=== PATIENT | male | born 1965 | race Caucasian/White ===

== ENCOUNTER 2025-03-25 17:50 | Inpatient (IN) | payer BC ==
[~2025-03-25] VITALS: Ht 178 cm; Wt 84.1 kg
[2025-03-25 18:27] VITALS: BP 151/100
[2025-03-25] MEDS ORDERED: diazePAM 10 MG/2 ML SYR IV ONE (18:35)
[2025-03-25] MEDS ORDERED: SODIUM CHLORIDE 0.9% 1,000 ML IV ONE (18:35)
[2025-03-25 18:50] LABS: BASO # 0.1 10*3/uL (0.0-0.1); BASO % 2.3 % (0.0-1.0); EOS # 0.0 10*3/uL (0.0-0.4); EOS % 0.4 % (1.0-4.0); MEAN CELL VOLUME 97.8 fl (80.0-94.0); MEAN CORPUSCULAR HGB 32.6 pg (27.0-31.0); MEAN PLATELET VOLUME 7.9 fl (9.6-12.3); MONO # 0.4 10*3/uL (0.1-1.0); MONO % 13.6 % (3.0-9.0); NEUT # 1.0 10*3/uL (2.3-7.9); NEUT % 40.5 % (47.0-73.0); NUCLEATED RED BLOOD CELL 0.0 % (0.0-0.0); NUCLEATED RED BLOOD CELL 0.0 10*3/uL (0.0-0.0); PLATELET COUNT AUTOMATED 225 10*3/uL (130-400); RED CELL DISTRI WIDTH 16.2 % (0-14.5)
[2025-03-25 19:18] LABS: ETHYL ALCOHOL 221.6 mg/dl (<3); SGPT/ALT 48 U/L (5-49)
[2025-03-25 19:19] LABS: URINE AMPHETAMINES Negative (1000ng/ml); URINE BARBITURATES Negative (200ng/ml); URINE BENZODIAZEPINES Negative (200ng/ml); URINE CANNABINOIDS (THC) Negative (50ng/ml); URINE COCAINE Negative (300ng/ml); URINE METHADONE Negative (300ng/ml); URINE OPIATES Negative (300ng/ml); URINE PHENCYCLIDINE Negative (25ng/ml)
[2025-03-25 19:21] LABS: BUN < 5 mg/dl (9-23)
[2025-03-25] MEDS ORDERED: POTASSIUM CHLORIDE 20 MEQ TAB PO ONE (19:35)
[2025-03-25] MEDS ORDERED: Ondansetron Hydrochloride 4 MG/2 ML VIAL IV PRN (20:05)
[2025-03-25] MEDS ORDERED: ACETAMINOPHEN 325 MG TAB PO PRN (20:05)
[2025-03-25] MEDS ORDERED: BISACODYL 10 MG SUPP R PRN (20:05)
[2025-03-25] MEDS ORDERED: ACETAMINOPHEN 650 MG SUPP R PRN (20:05)
[2025-03-25] MEDS ORDERED: BISACODYL 5 MG TAB PO PRN (20:05)
[2025-03-25] MEDS ORDERED: Acetaminophen/Hydrocodone 5 MG/325 MG TABLET PO PRN (20:05)
[2025-03-25] MEDS ORDERED: LORazepam 2 MG/ML VIAL IV PRN (20:10)
[2025-03-25] MEDS ORDERED: Dicyclomine Hydrochloride 20 MG TAB PO PRN (20:10)
[2025-03-25] MEDS ORDERED: METHOCARBAMOL 750 MG TAB PO PRN (20:10)
[2025-03-25] MEDS ORDERED: MAGNESIUM SULFATE 100 ML IV ONE (20:10)
[2025-03-25] MEDS ORDERED: Water, Sterile 10 ML VIAL IV PRN (20:10)
[2025-03-25] MEDS ORDERED: hydrOXYzine 50 MG CAP PO PRN (20:10)
[2025-03-25] MEDS ORDERED: FOLIC ACID 1 MG TAB PO ONE (20:10)
[2025-03-25 20:46] VITALS: BP 135/87
[2025-03-25] MEDS ORDERED: LORazepam 1 MG TAB PO SCH (22:00)
[2025-03-26] VITALS: BP 133/83
[2025-03-26 06:57] LABS: ACT PARTIAL THROMBO TIME 25.5 SECONDS (20.0-32.1)
[2025-03-26 07:07] LABS: BASO # 0.1 10*3/uL (0.0-0.1); BASO % 1.7 % (0.0-1.0); EOS # 0.0 10*3/uL (0.0-0.4); EOS % 1.0 % (1.0-4.0); MEAN CELL VOLUME 99.4 fl (80.0-94.0); MEAN CORPUSCULAR HGB 32.8 pg (27.0-31.0); MEAN PLATELET VOLUME 8.3 fl (9.6-12.3); MONO # 0.3 10*3/uL (0.1-1.0); MONO % 10.8 % (3.0-9.0); NEUT # 1.2 10*3/uL (2.3-7.9); NEUT % 39.9 % (47.0-73.0); NUCLEATED RED BLOOD CELL 0.0 % (0.0-0.0); NUCLEATED RED BLOOD CELL 0.0 10*3/uL (0.0-0.0); PLATELET COUNT AUTOMATED 207 10*3/uL (130-400); RED CELL DISTRI WIDTH 16.2 % (0-14.5)
[2025-03-26 07:35] LABS: FREE T4 1.12 ng/dl (0.89-1.76); LDL CHOLESTEROL 120 mg/dL (9-159); SGPT/ALT 40 U/L (5-49)
[2025-03-26 07:37] LABS: BUN < 5 mg/dl (9-23)
[2025-03-26 08:00] VITALS: BP 124/64
[2025-03-26] MEDS ORDERED: POTASSIUM CHLORIDE 20 MEQ TAB PO ONE (08:15)
[2025-03-26 09:49] LABS: VITAMIN D, 25-HYDROXY 55.4 ng/mL (30-100)
[2025-03-26] MEDS ORDERED: MULTIVITAMIN 1 TAB TAB PO SCH (10:00)
[2025-03-26 12:00] VITALS: BP 131/78
[2025-03-26 16:00] VITALS: BP 147/90
[2025-03-26 20:00] VITALS: BP 148/87
[2025-03-27] VITALS: BP 123/68
[2025-03-27] MEDS ORDERED: LORazepam 1 MG TAB PO SCH
[2025-03-27 05:52] LABS: BUN < 5 mg/dl (9-23)
[2025-03-27 06:23] LABS: BASO # 0.0 10*3/uL (0.0-0.1); BASO % 1.0 % (0.0-1.0); EOS # 0.0 10*3/uL (0.0-0.4); EOS % 1.0 % (1.0-4.0); MEAN CELL VOLUME 99.7 fl (80.0-94.0); MEAN CORPUSCULAR HGB 32.7 pg (27.0-31.0); MEAN PLATELET VOLUME 8.6 fl (9.6-12.3); MONO # 0.4 10*3/uL (0.1-1.0); MONO % 9.4 % (3.0-9.0); NEUT # 2.5 10*3/uL (2.3-7.9); NEUT % 65.2 % (47.0-73.0); NUCLEATED RED BLOOD CELL 0.0 % (0.0-0.0); NUCLEATED RED BLOOD CELL 0.0 10*3/uL (0.0-0.0); PLATELET COUNT AUTOMATED 199 10*3/uL (130-400); RED CELL DISTRI WIDTH 15.8 % (0-14.5)
[2025-03-27 08:00] VITALS: BP 155/83
[2025-03-27] MEDS ORDERED: POTASSIUM CHLORIDE 20 MEQ TAB PO ONE (10:10)
[2025-03-27 12:00] VITALS: BP 157/84
[2025-03-27 16:00] VITALS: BP 135/84
[2025-03-27] MEDS ORDERED: LORazepam 1 MG TAB PO PRN (18:00)
[2025-03-27 20:00] VITALS: BP 108/67
[2025-03-28] VITALS: BP 133/80
[2025-03-28 06:49] LABS: BASO # 0.0 10*3/uL (0.0-0.1); BASO % 1.1 % (0.0-1.0); EOS # 0.1 10*3/uL (0.0-0.4); EOS % 2.3 % (1.0-4.0); MEAN CELL VOLUME 101.2 fl (80.0-94.0); MEAN CORPUSCULAR HGB 33.4 pg (27.0-31.0); MEAN PLATELET VOLUME 8.6 fl (9.6-12.3); MONO # 0.4 10*3/uL (0.1-1.0); MONO % 11.3 % (3.0-9.0); NEUT # 1.6 10*3/uL (2.3-7.9); NEUT % 43.9 % (47.0-73.0); NUCLEATED RED BLOOD CELL 0.0 % (0.0-0.0); NUCLEATED RED BLOOD CELL 0.0 10*3/uL (0.0-0.0); PLATELET COUNT AUTOMATED 169 10*3/uL (130-400); RED CELL DISTRI WIDTH 15.8 % (0-14.5)
[2025-03-28 07:20] LABS: BUN < 5 mg/dl (9-23)
[2025-03-28 08:00] VITALS: BP 164/91; BP 175/97
[2025-03-28 12:00] VITALS: BP 142/77; BP 146/98
[2025-03-28 16:00] VITALS: BP 136/83
[2025-03-28] MEDS ORDERED: SODIUM CHLORIDE 0.9% 1,000 ML IV ONE (17:05)
[2025-03-28] MEDS ORDERED: Thiamine 100 MG TAB PO SCH (17:05)
[2025-03-28 20:00] VITALS: BP 136/90
[2025-03-29] VITALS: BP 141/89
[2025-03-29 06:43] LABS: BUN < 5 mg/dl (9-23)
[2025-03-29 06:47] LABS: BASO # 0.0 10*3/uL (0.0-0.1); BASO % 1.1 % (0.0-1.0); EOS # 0.1 10*3/uL (0.0-0.4); EOS % 2.0 % (1.0-4.0); MEAN CELL VOLUME 101.9 fl (80.0-94.0); MEAN CORPUSCULAR HGB 32.9 pg (27.0-31.0); MEAN PLATELET VOLUME 8.9 fl (9.6-12.3); MONO # 0.4 10*3/uL (0.1-1.0); MONO % 12.1 % (3.0-9.0); NEUT # 1.5 10*3/uL (2.3-7.9); NEUT % 43.5 % (47.0-73.0); NUCLEATED RED BLOOD CELL 0.0 % (0.0-0.0); NUCLEATED RED BLOOD CELL 0.0 10*3/uL (0.0-0.0); PLATELET COUNT AUTOMATED 169 10*3/uL (130-400); RED CELL DISTRI WIDTH 15.7 % (0-14.5)
[2025-03-29 08:00] VITALS: BP 158/97
[2025-03-29 11:59] VITALS: BP 146/100
[2025-03-29] MEDS ORDERED: LISINOPRIL 2.5 MG TAB PO SCH (13:35)
[2025-03-29 16:00] VITALS: BP 150/87
[2025-03-29] MEDS ORDERED: HYDROXYZINE PAM50 MG PO (17:01)
[2025-03-29] MEDS ORDERED: HYDROXYZINE PAM25 M1 PO (17:01)
[2025-03-29] MEDS ORDERED: SERTRALINE HYDR50 MG PO (17:01)
[2025-03-29] MEDS ORDERED: NATURE'S BLEND100 M2 PO (17:01)
[2025-03-29 20:00] VITALS: BP 144/93
[2025-03-30] VITALS: BP 144/84
[2025-03-30] MEDS ORDERED: OMEPRAZOLE 20 MG CAP PO SCH (06:00)
[2025-03-30 06:08] LABS: BASO # 0.0 10*3/uL (0.0-0.1); BASO % 1.2 % (0.0-1.0); EOS # 0.1 10*3/uL (0.0-0.4); EOS % 2.7 % (1.0-4.0); MEAN CELL VOLUME 103.4 fl (80.0-94.0); MEAN CORPUSCULAR HGB 33.2 pg (27.0-31.0); MEAN PLATELET VOLUME 8.7 fl (9.6-12.3); MONO # 0.4 10*3/uL (0.1-1.0); MONO % 11.7 % (3.0-9.0); NEUT # 1.1 10*3/uL (2.3-7.9); NEUT % 32.3 % (47.0-73.0); NUCLEATED RED BLOOD CELL 0.0 % (0.0-0.0); NUCLEATED RED BLOOD CELL 0.0 10*3/uL (0.0-0.0); PLATELET COUNT AUTOMATED 178 10*3/uL (130-400); RED CELL DISTRI WIDTH 15.5 % (0-14.5)
[2025-03-30 06:32] LABS: BUN < 5 mg/dl (9-23)
[2025-03-30 08:00] VITALS: BP 159/96
== END 2025-03-30 10:30 | DRG 897 ==
LOC: ED 17:50 → 5E 19:38 → EDHOLD 19:38 → 5E 20:26
PROVIDERS: Nurse Practitioner Family; Student in an Organized Health Care Education/Training Program; ADMIT Internal Medicine; ATTEND Internal Medicine
DX: F10.939 Alcohol use, unspecified with withdrawal, unspecified (principal); E44.0 Moderate protein-calorie malnutrition; F33.1 Major depressive disorder, recurrent, moderate; E87.6 Hypokalemia; E83.51 Hypocalcemia; D53.9 Nutritional anemia, unspecified; D72.819 Decreased white blood cell count, unspecified; R73.9 Hyperglycemia, unspecified; R74.01 Elevation of levels of liver transaminase levels; R00.0 Tachycardia, unspecified; R74.8 Abnormal levels of other serum enzymes; Y90.7 Blood alcohol level of 200-239 mg/100 ml; K21.9 Gastro-esophageal reflux disease without esophagitis; I10 Essential (primary) hypertension; F41.1 Generalized anxiety disorder; Z82.49 Family history of ischemic heart disease and other diseases of the circulatory system; Z83.6 Family history of other diseases of the respiratory system; Z68.27 Body mass index [BMI] 27.0-27.9, adult